=== PATIENT | female | born 1975 | race Caucasian/White ===

== ENCOUNTER 2020-04-21 20:21 | Emergency (ER) | payer MEDICAID, SELFPAY ==
[2020-04-21 20:22] VITALS: TEMP 37.1; BMI 36.5
[2020-04-21 20:25] VITALS: BP 132/74; PULSE 87; RESP 16; O2SAT 96
--- NOTE | 2020-04-21 21:28 | CT_ITS ---
We are attempting to reach an attending provider to discuss findings. An addendum with communication details will be sent when the communication is complete. STUDY: CT ABDOMEN AND PELVIS WITH CONTRAST REASON FOR EXAM: Female, 44 years old. SUDDEN ONSET LOWER ABD PAIN WITH DIARRHEA X 1 WEEK RADIATION DOSAGE (If Supplied By Facility): CTDIvol = ( 15.62 ) mGy, DLP = ( 1055.19 ) mGycm TECHNIQUE: Transaxial images were obtained from the dome of the diaphragm to the symphysis pubis without oral contrast. IV 100mL Isovue-370 was administered. Sagittal and coronal images were reconstructed. Individualized dose optimization techniques were used for this CT. COMPARISON: None. FINDINGS: The visualized lung bases are unremarkable. The visualized portions of the heart are within normal limits. Normal liver. Normal gallbladder and extrahepatic biliary system. There are 7.5 and 7.4 cm peripherally calcified cystic lesions of the spleen . Normal pancreas. Normal bilateral adrenal glands. Normal right kidney. Normal left kidney. Normal visualized stomach. Normal small intestine. There is mild fluid distention of the colon. There is a tubular, thick-walled appendix (>7mm), consistent with acute appendicitis, series 2 image 80/119 through 89/119. Normal abdominal aorta. Normal inferior vena cava. Normal retroperitoneum. Normal urinary bladder. Normal visualized uterus. There is no free fluid in the abdomen or pelvis. Normal abdominal wall. Normal osseous structures. CT/Abdomen/Pelvis W IV Cont ONLY IMPRESSION: Mild enlargement of the appendix suggesting acute appendicitis. No abscess or obstruction. Electronically Signed: Mahesh Moura MD at 23:01 EDT , Service support ,
[2020-04-21] MEDS: Morphine 4 MG/ML Syringe IV (21:33)
[2020-04-21] MEDS: Ondansetron 4 MG/2 ML Vial IV (21:33)
[2020-04-21 21:46] LABS: Absolute Neutrophil Count 8.7 X10^3/uL (2.0-7.7); Basophil# 0.05 X10^3/uL; Basophil% 0.4 % (0-1); Eosinophils% 2.2 % (0-5); Hematocrit 41.5 % (37-47); Hemoglobin 13.8 g/dL (12.0-15.0); Lymphocyte % 23.8 % (19-41); Mean Corp Hgb Conc 33.3 g/dL (32-36); Mean Corpuscular Hgb 29.1 pg (27.0-32.0); Mean Corpuscular Volume 87.4 fL (81-99); Mean Platelet Vol. 9.3 fl (6.2-12.0); Monocyte# 1.19 X10^3/uL; Monocyte% 8.8 % (0-10); NRBC Flagged by Analyzer 0 % (0-5); Neutrophil # 8.67 X10^3/uL (2.7-7.7); Neutrophil % 64.4 % (47-70); Platelet Count 402 K/mm3 (150-450); RBC Distribution Width CV 13.6 % (11.6-14.6); RBC Distribution Width SD 42.7 fl (35.1-43.9); Red Blood Count 4.75 M/mm3 (4.2-5.4); White Blood Count 13.5 K/mm3 (4.4-11.0)
[2020-04-21 21:49] LABS: Bacteria 0 SEEN /hpf (None Seen); Red Blood Cells-Urine 0 SEEN /hpf (0-5)
[2020-04-21 21:57] LABS: Color, Urine Yellow (Yellow); Glucose, Dipstick Normal (Normal); Ketone-Dipstick 5 mg/dl (Negative); Leukocyte Esterase-Dipstick 100 /ul (Negative); Nitrite-Dipstick Negative (Negative); Occult Blood-Urine 25 /ul (Negative); Protein-Dipstick 30 mg/dl (Negative); Specific Gravity, Urine 1.025 (1.002-1.030); Urine Clarity Sl. Cloudy (Clear); Urine Urobilinogen Normal (Normal)
[2020-04-21 22:00] LABS: ALB/GLOB Ratio 0.9 RATIO (0.9-2.4); AST(SGOT) 11 U/L (15-37); Alanine Aminotransfer ALT/SGPT 20 U/L (13-56); Albumin, Serum 3.7 g/dL (3.2-5.0); Alkaline Phosphatase 75 U/L (45-117); Anion Gap 10 (5-15); BUN 18 mg/dL (7-18); Calcium,Total 9.5 mg/dL (8.5-10.1); Chloride 109 mmol/L (98-107); EST Glomerular Filtration Rate 73 mL/min (>60); Est Glom Filt Rate - Afr Amer 88 mL/min (>60); Estimated Creatinine Clearance 73.27 ml/min; Globulin 4.3 g/dL (2.2-4.2); Glucose 111 mg/dL (74-106); Lipase 81 U/L (73-393); Potassium 3.4 mmol/L (3.5-5.1); Sodium Level 139 mmol/L (136-145)
[2020-04-21 22:01] LABS: Urine Bilirubin Dipstick 1 mg/dL (Negative)
[2020-04-21 22:07] LABS: Mucous, Urine 1+ /hpf (<or=2+); Squamous Epithelial Cells - UA 5-10 SEEN /hpf (5-10); White Blood Cells 5-10 SEEN /hpf (0-5)
[2020-04-21 22:08] LABS: Calcium Oxalate Crystals Ur 3+ /hpf (<or=2+)
[2020-04-21 22:25] VITALS: BP 119/74; PULSE 80; RESP 18; TEMP 36.2; O2SAT 99
--- NOTE | 2020-04-21 23:25 | ED.DCSUM_ITS ---
History of Present Illness Chief Complaint: Diarrhea Informant: Patient - Abdominal Pain/Flank Pain Onset: Today Context: Sudden Onset Timing: Continuous Quality: Sharp, Stabbing Location: - - Suprapubic Worsened by: Nothing Relieved by: Nothing - Diarrhea/Melena/Hematochezia GI Symptom: Diarrhea Onset: Days - 7 Stool Quality: Watery. Negative for: Black, Maroon, GURDEEP per rectum Associated Symptoms: Negative for: Dysuria, Frequency, Hematuria Narrative: Patient is a 44-year-old female with no significant past medical history presenting with sudden onset of abdominal pain. Patient states around 815 tonight she suddenly had a sharp stabbing pain in her suprapubic region. She has associated nausea but no vomiting. Patient does note that she has had significant diarrhea for the past week. She states she is been going up to every 30 minutes. She states she got up 3-4 times last night to have bowel movements. She states is mostly watery. She is concerned she might be dehydrated. She denies any urinary symptoms such as dysuria or hematuria. She denies any recent antibiotics, questionable foods or history of C. difficile. She denies any sick contacts. She did take 2 Imodium earlier today which did seem to slow down her diarrhea. Patient denies any fever or chills. She also notes that she had a rash on her bilateral arms since yesterday. She notes she was out at the beach yesterday and thinks it might be sun reaction. She notes she was not wearing any sunscreen or did not wear any new lotions. Patient denies any other complaints at this time. Past Medical History - Allergies and Home Meds Allergies/Adverse Reactions: Allergies latex Allergy (Verified 04/21/20 20:25) Rash Primary Care Physician: Care Physician,No Primary [Primary Care Provider] - Past Medical History: None Surgical History: no surgical history, noncontributory, - - Bilateral tubal ligation Smoking Status: Current every day smoker Review of Systems General: Denies: Chills, Fever, Sweats Eyes: Denies: Visual changes - bilaterally, Diplopia ENT: Denies: Rhinorrhea, Sore throat Cardiovascular: Denies: Chest pain, Palpitations Respiratory: Denies: Dyspnea, Cough, Dyspnea on exertion Gastrointestinal: Reports: Abdominal pain, Nausea, Diarrhea. Denies: Vomiting, Melena, Hematochezia Genitourinary: Denies: Dysuria, Hematuria, Frequency Musculoskeletal: Denies: Back pain, Extremity Pain Skin: Reports: Rash - arms. Denies: Wounds Neurological: Denies: Headache, Weakness, Numbness Physical Exam Vital Signs/Narrative: Vital Signs Temp Pulse Resp BP Pulse Ox 04/21/20 22:25 97.1 F L 80 18 119/74 99 04/21/20 20:25 87 16 132/74 H 96 04/21/20 20:22 98.7 F Inital Vital Signs reviewed: Yes General: Well nourished, Well developed, No Acute Distress Head: Normocephalic, Atraumatic Eyes: Perrl, EOMI ENT: Moist mucous membranes, No rhinorrhea Neck: Supple, Nontender Cardiovascular: Regular rate, Regular rhythm, No murmurs Respiratory: No distress, CTA bilaterally, Chest nontender Abdomen: Soft, Nontender, Nondistended, Hyperactive bowel sounds. Negative for: Guarding, Rebound tenderness, Rovsig's sign, Frank's sign Back: Nontender, Normal Inspection. Negative for: CVA tenderness Extremities: Nontender, No edema Skin: Normal color, Rash - Macule-papular erythematous rash on the sun exposed surfaces of the upper extremities consistent with a photodermatitis Neurological: Alert, Oriented x3, Cranial nerves II-XII grossly intact, Normal Strength, Normal Sensation Psychological: Normal affect, Normal Mood Diagnostic/Tx/Re-eval Clinical Impression(s) from Imaging Studies Abdomen/Pelvis CT 04/21/20 21:28 IMPRESSION: Mild enlargement of the appendix suggesting acute appendicitis. No abscess or obstruction. Electronically Signed: Mahesh Moura MD at 23:01 EDT , Service support , ADDENDUM: 04/21/20 [id number] IMPRESSION: Mild enlargement of the appendix suggesting acute appendicitis. No abscess or obstruction. N.B. : The above information has been verbally conveyed by Mahesh Moura MD to Tonia Paulson DO on 04/21/2020 23:08:56 (ET). Electronically Signed: Mahesh Moura MD at 23:01 EDT , Service support , Laboratory Data 04/21/20 04/21/20 04/21/20 20:45 20:45 21:45 WBC 13.5 H RBC 4.75 Hgb 13.8 Hct 41.5 MCV 87.4 MCH 29.1 MCHC 33.3 RDW Std Deviation 42.7 RDW Coeff of Jie 13.6 Plt Count 402 MPV 9.3 Immature Gran % (Auto) 0.400 Neut % (Auto) 64.4 Lymph % (Auto) 23.8 [place] % (Auto) 8.8 Eos % (Auto) 2.2 Baso % (Auto) 0.4 Absolute Neuts (auto) 8.7 H Absolute Lymphs (auto) 3.20 Nucleated RBC % 0 Sodium 139 Potassium 3.4 L Chloride 109 H Carbon Dioxide 20.0 L Anion Gap 10 BUN 18 Creatinine 0.90 Estim Creat Clear Calc 73.27 Est GFR (MDRD) Af Amer 88 Est GFR (MDRD) Non-Af 73 BUN/Creatinine Ratio 20.0 Glucose 111 H Calcium 9.5 Total Bilirubin 0.40 AST 11 L ALT 20 Alkaline Phosphatase 75 Total Protein 8.0 Albumin 3.7 Globulin 4.3 H Albumin/Globulin Ratio 0.9 Lipase 81 Urine Color Yellow Urine Clarity Sl. Cloudy Urine pH 5.0 Ur Specific [place] 1.025 Urine Protein 30 H Urine Glucose (UA) Normal Urine Ketones 5 H Urine Occult Blood 25 H Urine Nitrite Negative Urine Bilirubin 1 H Urine Urobilinogen Normal Ur Leukocyte Esterase 100 H Urine RBC 0 SEEN Urine WBC 5-10 SEEN Ur Squamous Epith Cells 5-10 SEEN Calcium Oxalate Crystal 3+ Urine Bacteria 0 SEEN Urine Mucus 1+ - Medical Decision Making Patient evaluated for sudden onset abdominal pain. She appears nontoxic in no acute distress. She is hemodynamically stable. She is given a liter of IV fluids as well as Zofran and IV morphine. Her abdominal exam is benign.Lab work is remarkable for leukocytosis of 13.5. CMP shows a very mild hypokalemia of 3.4 and a low carbon dioxide of 20. No transaminitis. Urinalysis shows 100 leukoesterase with no bacteria and contamination with squamous cells. Urine culture sent. CT is concerning for acute appendicitis with tubular thick-walled appendix. Patient does not have any pain in her right lower quadrant. Case is then discussed with surgery on-call, Dr. Shin who reviewed the images himself and also discussed this with a different radiologist. They do not feel that patient has acute appendicitis. Patient will be given a dose of IV Zosyn kept n.p.o. and will discharge home to follow-up with Dr. Shin's office at 7 AM. He will perform a repeat abdominal exam at that time. Patient is agreeable with this plan. She is very well-appearing and I think this is an appropriate plan. She is empirically swabbed for COVID-19 in case she does need surgery in the morning. Patient is counseled on signs and symptoms requiring return to the emergency room. Patient verbalizes agreement and understand this plan. Patient discharged home in stable and improved condition. ED Disposition - Plan for ED Patient: Disposition: Home or Assisted Living Diagnosis: Abdominal pain, Diarrhea, Abnormal CT scan, Photodermatitis due to sun Instructions: ED Abdominal Pain Appendx Poss Referrals: Tayo Shin MD [STAFF PHYSICIAN] - Additional Instructions: The initial CT scan read of your abdomen showed appendicitis. On reevaluation with another radiologist and our surgeon they do not believe it is appendicitis. We have arranged for you to be evaluated by the surgeon at 7 AM at the office for repeat abdominal exam. You have been given a dose of IV antibiotics tonight. Please do not have anything to eat or drink until you are seen by the surgeon. Rash is likely from sun exposure yesterday. You do not have any significant dehydration or electrolyte abnormality from your diarrhea.
[2020-04-21 23:32] VITALS: BP 126/80; PULSE 84; RESP 20; TEMP 37.1; O2SAT 98
[2020-04-22 00:19] VITALS: BP 114/70; PULSE 84; RESP 18; TEMP 37.1; O2SAT 97
[2020-04-22 01:10] VITALS: BP 118/70; PULSE 82; RESP 16; O2SAT 98
== END 2020-04-22 01:10 | disposition home or self-care (01) ==
PROVIDERS: Emergency Provider Emergency Medicine
DX: R10.9 Unspecified abdominal pain (principal); R19.7 Diarrhea, unspecified; R11.0 Nausea; E87.6 Hypokalemia; R94.8 Abnormal results of function studies of other organs and systems; L56.8 Other specified acute skin changes due to ultraviolet radiation; X32.XXXA Exposure to sunlight, initial encounter; Y93.9 Activity, unspecified; Y92.832 Beach as the place of occurrence of the external cause; Y99.9 Unspecified external cause status; F17.200 Nicotine dependence, unspecified, uncomplicated; Z91.040 Latex allergy status
CPT/HCPCS: 74177; 80053; 81001; 83690; 85025; 87086; 87088; 87635; 96365; 96375; 99285; G2023; J7030; J7050; Q9967; A4216; J2405; U0004

== ENCOUNTER 2022-06-01 13:48 | Emergency (ER) | payer MEDICAID, SELFPAY ==
[2022-06-01 13:49] VITALS: BP 141/80; PULSE 89; RESP 16; TEMP 36.8; O2SAT 96; BMI 34.1
--- NOTE | 2022-06-01 13:57 | EDS_ITS ---
HPI History of Present Illness Chief Complaint: Upper Extremity Injury Informant: patient Narrative Narrative: 46-year-old female arriving in the emergency department with left wrist pain. Patient states that this morning she tripped over a box and sustained a FOOSH injury. She notes pain along the thenar eminence up onto the distal wrist. She denies other injuries. She applied an Alexander wrap. [facility] Medical History No pertinent past medical history Home Medications ciprofloxacin HCl 500 mg tablet (Cipro) 500 mg PO BID #14 tabs 04/22/20 [Rx Last Taken Unknown] metronidazole 500 mg tablet (Flagyl) 500 mg PO TID #21 tabs 04/22/20 [Rx Last Taken Unknown] Allergy/AdvReac Type Severity Reaction Status Date / Time latex Allergy Rash Verified 04/22/20 12:28 Family History Father Cancer brain, lung Surgical History History of tubal ligation (~2013) Social History (Updated 06/01/22 @ 13:[address] Micheal Nguyễn DO) Smoking Status: Current every day smoker substance use type: does not use ROS ROS ED Constitutional Constitutional ED: Denies chills or weight loss Eyes Eyes: Denies change in vision or diplopia ENT ENT ED: Denies ear pain, rhinorrhea or sore throat Cardiovascular Cardiovascular: Denies chest pain, orthopnea, palpitations or racing heartbeat Respiratory/Chest Respiratory/Chest: Denies cough, dyspnea or orthopnea Gastrointestinal Gastrointestinal: Denies abdominal pain, diarrhea, nausea or vomiting Genitourinary Genitourinary ED: Denies dysuria, hematuria or urinary frequency Musculoskeletal Musculoskeletal: Reports other Details: See history of present illness ; Denies arthralgias or myalgias Integumentary Denies abscess or rash Neurologic Neurologic: Denies headache(s) or weakness Psychiatric Psychiatric: Denies anxiety, depression, suicidal ideation or suicidal thoughts Endocrine Endocrinology: Denies polydipsia, polyphagia or polyuria Allergic/Immunologic Allergic/Immunologic ED: Denies mouth swelling, tongue swelling or urticaria EXAM Physical Exam Const Vital Signs: 06/01/22 13:49 Temperature 98.2 F Temperature Source Temporal Pulse Rate 89 Respiratory Rate 16 Blood Pressure 141/80 H Blood Pressure Mean 100 Pulse Ox 96 Oxygen Delivery Method Room Air Positive well nourished and well developed General Appearance ED: well developed HEENT Reports normocephalic, head/scalp atraumatic and moist mucous membranes Eyes PERRL and EOMs intact bilaterally Neck full ROM, no lymphadenopathy, supple and no JVD Resp normal respiratory effort and clear to auscultation bilaterally Cardio regular rate, regular rhythm and no murmurs GI normal to inspection, nondistended, normoactive bowel sounds and non-tender Palpation: soft Back/Spine no CVA tenderness and normal ROM Extremity Extremity Narrative: Patient reports tenderness to palpation along the thenar eminence and the radial aspect of the left wrist. There is no significant swelling or deformity noted. Normal opposition. General Extremety ED: Negative for edema General Extremity: Negative for edema Neuro oriented x3 and CN's II-XII intact bilaterally Sensorium / Orientation: alert Motor Exam: strength 5/5 throughout Psych mental status grossly normal Mood & Affect: Negative for depressed or tearful Skin no rashes or lesions noted and no wounds MDM MDM MDM Narrative Medical decision making narrative: My interpretation of the plain films of the left wrist is no acute fracture. Patient was placed in a thumb spica Velcro splint. Follow-up 10 to 14 days if not improved return if worsening or concerns Discharge Plan Triage Chief Complaint: Upper Extremity Injury ED Provider: Micheal Nguyễn Dx/Rx/DC Orders Clinical Impression: Left wrist sprain Instructions: ED Wrist Sprain Prescriptions: No Action ciprofloxacin HCl [Cipro] 500 mg tablet 500 mg PO BID Qty: 14 0RF metronidazole [Flagyl] 500 mg tablet 500 mg PO TID Qty: 21 0RF Primary Care [facility]: [facility] - 10-14 Days if not better Disposition Disposition: Home, Self Care
--- NOTE | 2022-06-01 13:58 | RAD_ITS ---
STUDY: X-RAY - LEFT WRIST REASON FOR EXAM: Female, 46 years old. FALL, LATERAL PAIN TECHNIQUE: 3 view(s) of the wrist were obtained. COMPARISON: None. FINDINGS: Normal visualized distal radius and ulna. Normal radiocarpal articulation. Normal distal radioulnar articulation. Normal carpal bones. Normal carpal articulations. Normal carpometacarpal articulation of the thumb. Normal second through fifth carpometacarpal articulations. Normal visualized metacarpal bones. The soft tissue structures are unremarkable. There is no demonstrated acute fracture. RAD/Wrist min 3 Views IMPRESSION: Normal x-ray examination of the wrist. Electronically Signed: Tiburcio Lockhart MD at 14:38 EDT ,
--- NOTE | 2022-06-01 14:29 | ED.RN ---
no thumb spicka slints in the ER, called the housekeeping lead to look in the dasco closet.
[2022-06-01 14:36] VITALS: RESP 18
== END 2022-06-01 14:37 | disposition home or self-care (01) ==
PROVIDERS: Emergency Provider Emergency Medicine; Visit Provider Emergency Medicine
DX: S63.92XA Sprain of unspecified part of left wrist and hand, initial encounter (principal); W18.09XA Striking against other object with subsequent fall, initial encounter; F17.200 Nicotine dependence, unspecified, uncomplicated; Z79.899 Other long term (current) drug therapy
CPT/HCPCS: 73110; 99283

== ENCOUNTER → 2022-11-29 | Outpatient (CLI) | payer MEDICAID, SELFPAY ==
[2022-11-29 17:11] LABS: Absolute Lymphocyte Count 3.74 X10^3/uL (0.83-4.51); Absolute Neutrophil Count 8.2 X10^3/uL (2.0-7.7); Basophil# 0.11 X10^3/uL; Basophil% 0.8 % (0-1); Eosinophil# 0.26 X10^3/uL; Hematocrit 36.6 % (37-47); Hemoglobin 12.3 g/dL (12.0-15.0); Lymphocyte # 3.74 X10^3/ul (0.83-4.51); Lymphocyte % 28.4 % (19-41); Mean Corp Hgb Conc 33.6 g/dL (32-36); Mean Corpuscular Hgb 31.6 pg (27.0-32.0); Mean Corpuscular Volume 94.1 fL (81-99); Mean Platelet Vol. 8.9 fl (6.2-12.0); Monocyte# 0.67 X10^3/uL; Monocyte% 5.1 % (0-10); NRBC Flagged by Analyzer 0 % (0-5); Neutrophil # 8.24 X10^3/uL (2.7-7.7); Neutrophil % 62.5 % (47-70); Platelet Count 346 K/mm3 (150-450); RBC Distribution Width SD 58.4 fl (35.1-43.9); Red Blood Count 3.89 M/mm3 (4.2-5.4); White Blood Count 13.2 K/mm3 (4.4-11.0)
[2022-11-29 17:33] LABS: ALB/GLOB Ratio 0.6 RATIO (0.9-2.4); AST(SGOT) 35 U/L (15-37); Alanine Aminotransfer ALT/SGPT 54 U/L (13-56); Albumin, Serum 3.3 g/dL (3.2-5.0); Alkaline Phosphatase 94 U/L (45-117); Anion Gap 4 (5-15); BUN 11 mg/dL (7-18); BUN/Creat Ratio 15.8 RATIO (10-20); Calcium,Total 9.1 mg/dL (8.5-10.1); Chloride 105 mmol/L (98-107); EST Glomerular Filtration Rate 97 mL/min (>60); Est Glom Filt Rate - Afr Amer 117 mL/min (>60); Globulin 5.3 g/dL (2.2-4.2); Glucose 157 mg/dL (74-106); Potassium 3.6 mmol/L (3.5-5.1); Protein, Total 8.6 g/dL (6.4-8.2); Sodium Level 137 mmol/L (136-145)
[2022-12-01 11:51] LABS: Hemoglobin A1c 4.8 % (3.8-5.6)
== END | disposition home or self-care (01) ==
LOC: LAB 16:33
PROVIDERS: Visit Provider Nurse Practitioner Family
DX: B17.9 Acute viral hepatitis, unspecified (principal); E66.9 Obesity, unspecified
CPT/HCPCS: 36415; 80053; 80074; 83036; 85025; 86708

== ENCOUNTER 2023-11-21 09:58 | Emergency (ER) | payer MEDICAID, SELFPAY ==
[2023-11-21 09:59] VITALS: BP 112/75; PULSE 111; RESP 18; TEMP 36.1; O2SAT 96; BMI 36.1
--- NOTE | 2023-11-21 10:42 | US_ITS ---
STUDY: ABDOMINAL ULTRASOUND - RIGHT UPPER QUADRANT REASON FOR VISIT: Female, 47 years old RUQ pain TECHNIQUE: Ultrasound evaluation of the right upper quadrant was performed with real-time and static dimas-scale imaging. TECHNICAL QUALITY: Adequate. COMPARISON: CT abdomen and pelvis with IV contrast 04/21/2020. FINDINGS: Liver: The liver measures 18.2 cm. There is normal echogenicity of the liver. The bile ducts are within normal limits. There is hepatic color flow. The direction of portal flow is hepatopetal. 1 cm hyperechoic lesion in the left hepatic lobe representing hemangioma. Gallbladder: Normal distended gallbladder. Small foci in the gallbladder wall with comet tail artifact may represent minimal GB wall calcifications. The gallbladder wall measures 2 mm. There is a negative sonographic Frank''s sign. There is no pericholecystic fluid. There are no gallstones. Common Bile Duct (C.B.D.): The common bile duct measures 2.7 mm. Pancreas: Normal size of the head, body and tail of the pancreas. Normal echogenic pancreas. There is no demonstrated pancreatic mass or cyst. Right Kidney: Normal size of the right kidney. The right kidney measures 11.5 x 5.9 x 4.5 cm. Normal renal cortex. The right cortex measures 1.1 cm. There is no demonstrated renal mass or cyst. There is no right hydronephrosis. US/Gallbladder IMPRESSION: 1. Comment tail artifacts coming from the GB wall may be due to minimal calcifications but no gallstones, no pericholecystic fluid and negative Frank''s sign. 2. Small 1 cm hyperechoic lesion in the left hepatic lobe may be secondary to hemangioma. Three-phase CT of the liver will help clarify if desired. Electronically Signed: Robbie Perdue MD at 12:19 EST ,
--- NOTE | 2023-11-21 10:52 | EDS_ITS ---
HPI History of Present Illness Chief Complaint: Abd Pain Informant: patient Onset/Context/Timing Onset: Days Context: Gradual Onset Narrative Narrative: Patient presents with 4-day history of diarrhea. She also complains of pain along the right lateral abdominal wall that wraps into her back as well as her abdomen. She does report a history of hepatitis and is supposed to be on medications but has not been doing so. She states these infusions are ordered by [facility]. She denies seeing a liver specialist. She reports subjective fever at home. [facility] Medical History Abnormal LFTs Acute viral hepatitis No pertinent past medical history Home Medications sertraline 25 mg tablet (Zoloft) 100 mg PO DAILY 11/07/22 [History Last Taken Unknown] trazodone 50 mg tablet 50 mg PO DAILY PRN insomnia 11/07/22 [History Last Taken Unknown] acetaminophen 650 mg tablet,extended release 650 mg PO Q12H 12/29/22 [History Last Taken Unknown] albuterol sulfate 90 mcg/actuation breath activated powder inhaler 1 inh inhalation ONCE 12/29/22 [History Last Taken Unknown] buspirone 15 mg tablet 15 mg PO BID 12/29/22 [History Last Taken Unknown] Allergy/AdvReac Type Severity Reaction Status Date / Time latex Allergy Rash Verified 11/21/23 09:59 Family History Father Cancer brain, lung Surgical History History of tubal ligation (~2013) Social History Smoking Status: Current every day smoker tobacco type: cigarettes substance use type: does not use ROS ROS ED Constitutional Constitutional ED: Reports fever(s) and subjective; Denies chills Eyes Eyes: Denies discharge from eye(s) ENT ENT ED: Denies discharge from eye(s), rhinorrhea or sore throat Cardiovascular Cardiovascular: Denies chest pain or palpitations Respiratory/Chest Respiratory/Chest: Denies cough or dyspnea Gastrointestinal Gastrointestinal: Reports abdominal pain and diarrhea; Denies nausea or vomiting Genitourinary Genitourinary ED: Denies dysuria Musculoskeletal Musculoskeletal: Denies back pain or extremity pain Integumentary Denies Abrasions or rash Neurologic Neurologic: Denies headache(s) or weakness Psychiatric Psychiatric: Denies anxiety or depression Allergic/Immunologic Allergic/Immunologic ED: Denies lip swelling or urticaria EXAM Physical Exam Const Vital Signs: 11/21/23 09:59 11/21/23 11:56 11/21/23 13:00 Temperature 96.9 F L Temperature Source Temporal Pulse Rate 111 H 91 95 Respiratory Rate 18 16 16 Blood Pressure 112/75 117/78 116/80 Blood Pressure Mean 87 91 92 Pulse Ox 96 96 96 Oxygen Delivery Method Room Air Room Air Room Air Positive well nourished and well developed General Appearance ED: well developed HEENT Reports moist mucous membranes Eyes EOMs intact bilaterally Chest Wall inspection of chest normal and palpation of chest normal Resp normal respiratory effort and clear to auscultation bilaterally Cardio regular rate and regular rhythm GI GI Narrative: Mild tenderness to the right upper quadrant. No guarding or rebound. Hypoactive but present bowel sounds. Extremity normal to inspection Neuro oriented x3 and no sensory deficits noted Motor Exam: strength 5/5 throughout Psych mental status grossly normal Skin no rashes or lesions noted MDM MDM MDM Narrative Medical decision making narrative: IV line established. Patient given morphine and Zofran for pain and nausea. Labwork obtained to evaluate for leukocytosis, anemia, and electrolyte derangement. Right upper quadrant ultrasound obtained to evaluate for gallbladder disease. Lab Data Attestation: I reviewed the patient's lab results. Labs: Laboratory Results - last 24 hr 11/21/23 11/21/23 10:10 13:53 WBC 18.2 H RBC 4.62 Hgb 13.6 Hct 41.7 MCV 90.3 MCH 29.4 MCHC 32.6 RDW Std Deviation 43.8 RDW Coeff of Jie 13.3 Plt Count 360 MPV 9.3 Immature Gran % (Auto) 0.400 Neut % (Auto) 72.6 H Lymph % (Auto) 18.7 L [place] % (Auto) 6.3 Eos % (Auto) 1.3 Baso % (Auto) 0.7 Absolute Neuts (auto) 13.2 H Absolute Lymphs (auto) 3.40 Nucleated RBC % 0 Sodium 136 Potassium 3.5 Chloride 103 Carbon Dioxide 28.0 Anion Gap 5 BUN 17 Creatinine 0.88 Estim Creat Clear Calc 75.58 Est GFR (MDRD) Af Amer 89 Est GFR (MDRD) Non-Af 74 BUN/Creatinine Ratio 19.3 Glucose 139 H Calcium 9.6 Total Bilirubin 0.40 Direct Bilirubin 0.11 AST 57 H ALT 131 H Alkaline Phosphatase 107 Total Protein 8.4 H Albumin 3.6 Globulin 4.8 H Lipase 26 Urine Color Yellow Urine Clarity Clear Urine pH 5.0 Ur Specific [place] 1.015 Urine Protein Negative Urine Glucose (UA) Normal Urine Ketones Negative Urine Occult Blood Negative Urine Nitrite Negative Urine Bilirubin Negative Urine Urobilinogen Normal Ur Leukocyte Esterase Negative Urine RBC 0 SEEN Urine WBC 0-5 SEEN Ur Squamous Epith Cells 0-5 SEEN Urine Bacteria RARE Urine Mucus 0 SEEN Radiography Diagnostic Testing: Clinical Impression(s) from Imaging Studies Gallbladder Ultrasound 11/21/23 10:42 IMPRESSION: 1. Comment tail artifacts coming from the GB wall may be due to minimal calcifications but no gallstones, no pericholecystic fluid and negative Frank''s sign. 2. Small 1 cm hyperechoic lesion in the left hepatic lobe may be secondary to hemangioma. Three-phase CT of the liver will help clarify if desired. Electronically Signed: Robbie Perdue MD at 12:19 EST , Abdomen/Pelvis CT 11/21/23 12:35 IMPRESSION: 1. Prominent bilobed cyst with calcified jain in the spleen. This is unchanged. 2. Normal CT of the appendix, previously reported as acute appendicitis when compared to 04/21/2020. 3. No acute abnormality in the abdomen and pelvis. Electronically Signed: Robbie Perdue MD at 13:50 EST , Treatment and Re-Evaluation :: CBC was elevated white count 18.2 with 72% neutrophils. Last labs patient had obtained here were in November at which time her white count was 13. She does not know of a chronically elevated white count. Chemistry studies remarkable only for glucose of 139. Renal function is normal. LFTs reveal an AST of 57 and ALT of 131. Lipase is 26. Urinalysis is unremarkable. Right upper quadrant ultrasound reveals artifact coming from the gallbladder which may be due to minimal calcification but no gallstones or pericholecystic fluid noted. Small hyperechoic lesion in the left hepatic lobe may be secondary to hemangio ma. Given her leukocytosis with abdominal pain and reported fever I did pursue a CT scan abdomen pelvis with IV contrast. There is a prominent bilobed cyst with calcified jain in the spleen that is unchanged from prior. Normal appendix. No acute abnormality noted. Test results are discussed with the patient. She has not been febrile here but did have subjective fever at home. Given her leukocytosis I will draw blood cultures as well as another hepatitis panel as patient has had hepatitis in the past and has not been going for her infusion treatments. She will [facility] with [facility] for repeat lab work. Return instructions were also provided. Patient comfortable with this plan. Discharge Plan Triage Chief Complaint: Abd Pain ED Provider: Jaylyn Ji Dx/Rx/DC Orders Clinical Impression: Leukocytosis, Abdominal pain Instructions: ED Abdominal Pain Unkn Cause Fem Prescriptions: No Action sertraline [Zoloft] 25 mg tablet 100 mg PO DAILY trazodone 50 mg tablet 50 mg PO DAILY PRN (Reason: insomnia) acetaminophen 650 mg tablet extended release 650 mg PO Q12H albuterol sulfate 90 mcg/actuation aerosol powdr breath activated 1 inh inhalation ONCE buspirone 15 mg tablet 15 mg PO BID Primary Care Provider: [facility] An[facility] Acosta Referrals: [facility] [Primary Care Provider] - 1 Week Activity Restrictions/Additional Instructions: As discussed, your white blood cell count is elevated today. I have not found any specific source of infection, but do have blood cultures pending. Please follow-up with [facility] for repeat labs. Disposition Disposition: Home, Self Care
[2023-11-21] MEDS: Morphine 4 MG/ML Syringe IV (10:54)
[2023-11-21] MEDS: 0.9% Normal Saline (1000mL) 1,000 ML 150 ML IV (10:54)
[2023-11-21] MEDS: Ondansetron 4 MG/2 ML Vial IV (10:54)
[2023-11-21 10:59] LABS: Absolute Neutrophil Count 13.2 X10^3/uL (2.0-7.7); Basophil# 0.12 X10^3/uL; Basophil% 0.7 % (0-1); Eosinophil# 0.24 X10^3/uL; Eosinophils% 1.3 % (0-5); Hematocrit 41.7 % (37-47); Hemoglobin 13.6 g/dL (12.0-15.0); Lymphocyte % 18.7 % (19-41); Mean Corp Hgb Conc 32.6 g/dL (32-36); Mean Corpuscular Hgb 29.4 pg (27.0-32.0); Mean Corpuscular Volume 90.3 fL (81-99); Mean Platelet Vol. 9.3 fl (6.2-12.0); Monocyte# 1.15 X10^3/uL; Monocyte% 6.3 % (0-10); NRBC Flagged by Analyzer 0 % (0-5); Neutrophil # 13.19 X10^3/uL (2.7-7.7); Neutrophil % 72.6 % (47-70); Platelet Count 360 K/mm3 (150-450); RBC Distribution Width CV 13.3 % (11.6-14.6); RBC Distribution Width SD 43.8 fl (35.1-43.9); Red Blood Count 4.62 M/mm3 (4.2-5.4); White Blood Count 18.2 K/mm3 (4.4-11.0)
[2023-11-21 11:14] LABS: AST(SGOT) 57 U/L (15-37); Alanine Aminotransfer ALT/SGPT 131 U/L (13-56); Albumin, Serum 3.6 g/dL (3.2-5.0); Alkaline Phosphatase 107 U/L (45-117); Anion Gap 5 (5-15); BUN 17 mg/dL (7-18); BUN/Creat Ratio 19.3 RATIO (10-20); Bilirubin, Direct 0.11 mg/dL (0.00-0.30); Calcium,Total 9.6 mg/dL (8.5-10.1); Chloride 103 mmol/L (98-107); Creatinine, Serum 0.88 mg/dL (0.55-1.02); EST Glomerular Filtration Rate 74 mL/min (>60); Est Glom Filt Rate - Afr Amer 89 mL/min (>60); Estimated Creatinine Clearance 75.58 ml/min; Globulin 4.8 g/dL (2.2-4.2); Glucose 139 mg/dL (74-106); Lipase 26 U/L (13-75); Potassium 3.5 mmol/L (3.5-5.1); Protein, Total 8.4 g/dL (6.4-8.2); Sodium Level 136 mmol/L (136-145)
[2023-11-21 11:56] VITALS: BP 117/78; PULSE 91; RESP 16; O2SAT 96
--- NOTE | 2023-11-21 12:35 | CT_ITS ---
EXAM: CT ABDOMEN AND PELVIS WITH INTRAVENOUS CONTRAST CLINICAL INDICATION: Right upper quadrant pain. Leukocytosis. TECHNIQUE: Helically acquired images were obtained of the abdomen and pelvis with intravenous contrast. This CT exam was performed using one or more of the following dose reduction techniques: automated exposure control, adjustment of the mA and/or kV according to patient size, and/or use of iterative reconstruction technique. CONTRAST: 100 mL of IV Isovue-300. RADIATION DOSE: CTDIvol = 17.50 mGy, DLP = 1183.12 mGy-cm COMPARISON: CT abdomen and pelvis with IV contrast 04/21/2020. FINDINGS: LOWER THORAX: Unremarkable. Lung bases are clear. No cardiomegaly. No significant pericardial effusion. ABDOMEN: LIVER: Unremarkable. Homogeneous. No focal mass. GALLBLADDER AND BILE DUCTS: Unremarkable. No calcified gallstones. No gallbladder distention or wall edema. No intra- or extrahepatic biliary ductal dilation. PANCREAS: Unremarkable. No focal cystic or solid mass. SPLEEN: Prominent bilobed splenic cysts with thick calcified jain are unchanged. ADRENALS: Unremarkable. No nodules. KIDNEYS AND URETERS: Unremarkable. Normal renal size and position. No hydronephrosis. STOMACH AND BOWEL: Unremarkable. No stomach or bowel distention. No focal inflammatory change. PELVIS: APPENDIX: Normal appendix. BLADDER: Unremarkable. REPRODUCTIVE: Unremarkable as visualized. No mass. ABDOMEN and PELVIS: INTRAPERITONEAL SPACE: Unremarkable. No ascites or other fluid collection. No free air. BONES/JOINTS: Unremarkable. No suspicious lytic or blastic abnormality. SOFT TISSUES: Unremarkable. No discrete abdominal or pelvic wall hernia. VASCULATURE: Unremarkable. Abdominal aorta is non-dilated. LYMPH NODES: Unremarkable. No enlarged lymph nodes. CT/Abdomen/Pelvis W IV Cont ONLY IMPRESSION: 1. Prominent bilobed cyst with calcified jain in the spleen. This is unchanged. 2. Normal CT of the appendix, previously reported as acute appendicitis when compared to 04/21/2020. 3. No acute abnormality in the abdomen and pelvis. Electronically Signed: Robbie Perdue MD at 13:50 EST ,
[2023-11-21 13:00] VITALS: BP 116/80; PULSE 95; RESP 16; O2SAT 96
[2023-11-21 13:58] LABS: Mucous, Urine 0 SEEN /hpf (<or=2+); Red Blood Cells-Urine 0 SEEN /hpf (0-5)
[2023-11-21 14:00] LABS: Color, Urine Yellow (Yellow); Glucose, Dipstick Normal (Normal); Ketone-Dipstick Negative (Negative); Leukocyte Esterase-Dipstick Negative /ul (Negative); Nitrite-Dipstick Negative (Negative); Occult Blood-Urine Negative /ul (Negative); Protein-Dipstick Negative (Negative); Specific Gravity, Urine 1.015 (1.002-1.030); Urine Bilirubin Dipstick Negative (Negative); Urine Clarity Clear (Clear); Urine Urobilinogen Normal (Normal)
[2023-11-21 14:06] LABS: Bacteria RARE /hpf (None Seen); Squamous Epithelial Cells - UA 0-5 SEEN /hpf (5-10); White Blood Cells 0-5 SEEN /hpf (0-5)
== END 2023-11-21 16:15 | disposition home or self-care (01) ==
PROVIDERS: Emergency Provider Emergency Medicine; Referring Provider Emergency Medicine; Visit Provider Emergency Medicine
DX: R10.11 Right upper quadrant pain (principal); D72.829 Elevated white blood cell count, unspecified; B17.9 Acute viral hepatitis, unspecified; F17.210 Nicotine dependence, cigarettes, uncomplicated; Z91.148 Patient's other noncompliance with medication regimen for other reason
CPT/HCPCS: 36415; 74177; 76705; 80048; 80074; 80076; 81001; 83690; 85025; 87040; 96361; 96374; 96375; 99282; Q9967; A4216; J2405

== ENCOUNTER 2024-02-20 16:02 | Outpatient (REF) | payer SELFPAY ==
[2024-02-20 16:03] VITALS: BP 131/81; PULSE 94; RESP 16; TEMP 36.2; O2SAT 98; BMI 38.2
--- NOTE | 2024-02-20 16:06 | NURSING ---
NO OLD EKGS
--- NOTE | 2024-02-20 16:23 | EKG12_ITS ---
Test Reason : CP Blood Pressure : / mmHG Vent. Rate : 097 BPM Atrial Rate : 097 BPM P-R Int : 134 ms QRS Dur : 144 ms QT Int : 382 ms P-R-T Axes : 032 072 027 degrees QTc Int : 485 ms Normal sinus rhythm Right bundle branch block Abnormal ECG No previous ECGs available Confirmed by SHAILA ALTMAN, ABDI ([id number]), editor map ANDERSON FOX ([id number]) on 02/21/2024 9:15:40 AM Referred By: MACY/STEVEN Confirmed By:ABDI LINTON MD
[2024-02-20] MEDS: Aspirin 81 MG TAB.CHEW 324 MG PO (16:29)
[2024-02-20 16:37] LABS: Basophil# 0.11 X10^3/uL; Basophil% 0.7 % (0-1); Eosinophil# 0.17 X10^3/uL; Eosinophils% 1.1 % (0-5); Hematocrit 38.2 % (37-47); Hemoglobin 12.8 g/dL (12.0-15.0); Lymphocyte % 21.8 % (19-41); Mean Corp Hgb Conc 33.5 g/dL (32-36); Mean Corpuscular Hgb 30.2 pg (27.0-32.0); Mean Corpuscular Volume 90.1 fL (81-99); Mean Platelet Vol. 8.8 fl (6.2-12.0); Monocyte# 1.44 X10^3/uL; Monocyte% 9.5 % (0-10); NRBC Flagged by Analyzer 0 % (0-5); Neutrophil # 10.04 X10^3/uL (2.7-7.7); Neutrophil % 66.6 % (47-70); Platelet Count 344 K/mm3 (150-450); RBC Distribution Width CV 13.3 % (11.6-14.6); RBC Distribution Width SD 43.6 fl (35.1-43.9); Red Blood Count 4.24 M/mm3 (4.2-5.4); White Blood Count 15.1 K/mm3 (4.4-11.0)
--- NOTE | 2024-02-20 16:37 | RAD_ITS ---
STUDY: X-RAY CHEST REASON FOR EXAM: Female, 48 years old. chest pain TECHNIQUE: AP portable COMPARISON: None. FINDINGS: The lungs are clear and expanded. There is no demonstrated pleural abnormality. Normal size heart. Normal mediastinum and darby. Normal visualized pulmonary arteries. Normal visualized aortic arch and descending thoracic aorta. Normal visualized thoracic spine. Normal visualized ribs, clavicles, and shoulders. There is no demonstrated abnormality of the visualized soft tissue structures of the upper abdomen. RAD/Chest 1 View (Portable) IMPRESSION: Normal x-ray examination of the chest. Electronically Signed: Triston Ardon MD at 17:28 EDT ,
[2024-02-20 17:02] VITALS: BP 128/79; PULSE 82; RESP 17; O2SAT 97
--- NOTE | 2024-02-20 17:08 | EDS_ITS ---
HPI <Vianey Bright RN - Last Filed: 02/20/24 17:42> History of Present Illness Chief Complaint: Chest Pain Detail of Chief Complaint: Midsternal radiating to right neck and right shoulder Informant: patient Onset/Context/Timing Onset: Yesterday Activity at onset: sudden Timing: Intermittent Quality: Positive for Pressure Location: Substernal Current Severity: 0/10 Maximum Severity: 7/10 Worsened By: Nothing Relieved By: Nothing Narrative Narrative: Patient is a 48-year-old female with past medical history of viral hepatitis who presents with midsternal chest pain radiating to right neck and right arm. Patient reports pain woke her last night from her sleep and has continued to be intermittent. She denies precipitating or aggravating events. Pain self resol ves. She denies chest pain at this time. She denies lightheadedness, dizziness, nausea, vomiting, or diarrhea. She denies any recent travel. She denies any injury. She denies family history of stroke or heart disease. She is a smoker 1 pack/day x 32 years. Prior Similar Symptoms: No Recent Illness/Hospitalization: No CVD Risk Factors: Positive for Smoking [facility] <Vianey Bright RN - Last Filed: 02/20/24 17:42> [facility] Medical History Abnormal LFTs Acute viral hepatitis No pertinent past medical history Home Medications sertraline 25 mg tablet (Zoloft) 100 mg PO DAILY 11/07/22 [History Last Taken Unknown] trazodone 50 mg tablet 50 mg PO DAILY PRN insomnia 11/07/22 [History Last Taken Unknown] acetaminophen 650 mg tablet,extended release 650 mg PO Q12H 12/29/22 [History Last Taken Unknown] albuterol sulfate 90 mcg/actuation breath activated powder inhaler 1 inh inhalation ONCE 12/29/22 [History Last Taken Unknown] buspirone 15 mg tablet 15 mg PO BID 12/29/22 [History Last Taken Unknown] Allergy/AdvReac Type Severity Reaction Status Date / Time latex Allergy Rash Verified 02/20/24 16:06 Family History Father Cancer brain, lung Surgical History History of tubal ligation (~2013) Social History Smoking Status: Current every day smoker tobacco type: cigarettes substance use type: does not use ROS <Vianey Bright RN - Last Filed: 02/20/24 17:42> ROS ED Constitutional Constitutional ED: Denies chills, fever(s), sweats or weight loss Eyes Eyes: Denies change in vision ENT ENT ED: Denies ear pain, rhinorrhea or sore throat Cardiovascular Cardiovascular: Reports chest pain and other Details: No chest pain at this time. ; Denies orthopnea, palpitations, paroxysmal nocturnal dyspnea or racing heartbeat Respiratory/Chest Respiratory/Chest: Denies cough, dyspnea, dyspnea on exertion, orthopnea or paroxysmal nocturnal dyspnea Gastrointestinal Gastrointestinal: Denies abdominal pain, constipation, diarrhea, nausea or vomiting Genitourinary Genitourinary ED: Denies dysuria, hematuria or urinary frequency Musculoskeletal Musculoskeletal: Reports neck pain and other Details: Substernal chest pain radiating to right side of the neck and right shoulder. ; Denies arthralgias, back pain or myalgias Integumentary Denies abscess, Abrasions or rash Neurologic Neurologic: Denies headache(s), paresthesias or weakness Psychiatric Psychiatric: Reports anxiety and depression EXAM <Vianey Bright RN - Last Filed: 02/20/24 17:42> Physical Exam Narrative Exam Narrative: Patient is awake, alert, cooperative, good historian. Patient is accompanied by 2 police officers due to currently being incarcerated. Const Vital Signs: 02/20/24 16:03 02/20/24 16:23 02/20/24 17:02 Temperature 97.1 F L Temperature Source Temporal Pulse Rate 94 82 Respiratory Rate 16 17 Blood Pressure 131/81 H 128/79 H Blood Pressure Mean 97 95 Pulse Ox 98 97 Oxygen Delivery Method Room Air Room Air Room Air Positive well nourished and well developed General Appearance ED: well developed and NAD; Negative for pallor HEENT Reports moist mucous membranes Eyes PERRL and EOMs intact bilaterally Neck no lymphadenopathy, supple and no JVD Chest Wall inspection of chest normal and palpation of chest normal Chest Narrative: Reproducible suprasternal chest pain with palpation. Chest: tenderness Resp normal respiratory effort and clear to auscultation bilaterally Auscultation: Negative for rales, rhonchi or wheezes Cardio regular rate, regular rhythm, S1 normal heart sound and S2 normal heart sound Peripheral Pulses: pulses 2+ throughout GI normal to inspection, nondistended, normoactive bowel sounds, soft to palpation and non-tender Narrative: Denies dysuria, hematuria, urinary frequency. Back/Spine Back/Spine Narrative: Pain to cervical spine with palpation. Cervical Spine: cervical spine tenderness Extremity normal to inspection General Extremety ED: Negative for edema General Extremity: Negative for edema Neuro oriented x3 Sensorium / Orientation: awake and alert Motor Exam: strength 5/5 throughout Psych mental status grossly normal Skin no rashes or lesions noted and no wounds General Skin Exam: Negative for jaundice or pallor <Dr. Mauri Landis MD - Last Filed: 02/20/24 17:42> Physical Exam Const Vital Signs: 02/20/24 16:03 02/20/24 16:23 02/20/24 17:02 Temperature 97.1 F L Temperature Source Temporal Pulse Rate 94 82 Respiratory Rate 16 17 Blood Pressure 131/81 H 128/79 H Blood Pressure Mean 97 95 Pulse Ox 98 97 Oxygen Delivery Method Room Air Room Air Room Air MDM <Vianey Bright RN - Last Filed: 02/20/24 17:42> [facility] Lab Data Labs: Laboratory Results - last 24 hr 02/20/24 16:30 WBC 15.1 H RBC 4.24 Hgb 12.8 Hct 38.2 MCV 90.1 MCH 30.2 MCHC 33.5 RDW Std Deviation 43.6 RDW Coeff of Jei 13.3 Plt Count 344 MPV 8.8 Immature Gran % (Auto) 0.300 Neut % (Auto) 66.6 Lymph % (Auto) 21.8 [place] % (Auto) 9.5 Eos % (Auto) 1.1 Baso % (Auto) 0.7 Absolute Neuts (auto) 10.0 H Absolute Lymphs (auto) 3.30 Nucleated RBC % 0 Sodium 137 Potassium 4.0 Chloride 104 Carbon Dioxide 29.0 Anion Gap 4 L BUN 14 Creatinine 0.75 Estim Creat Clear Calc 112.35 Est GFR (MDRD) Af Amer 107 Est GFR (MDRD) Non-Af 88 BUN/Creatinine Ratio 18.6 Glucose 92 Calcium 9.3 Troponin I High Sens 6 Radiography Chest X-Ray - ED: 1 View and Read by Radiologist Diagnostic Testing: Clinical Impression(s) from Imaging Studies Chest X-Ray 02/20/24 16:37 IMPRESSION: Normal x-ray examination of the chest. Electronically Signed: Triston Ardon MD at 17:28 EDT Reading Location ID and State: [address] [place] [address] Tel , Service support , Chest x-ray shows normal cardiac silhouette, no widened mediastinum, no infiltrates noted. EKG Initial EKG: Attestation: I personally reviewed and interpreted this EKG as follows: Interpretation: Sinus Rhythm, No Acute Injury Pattern and RBBB Prior EKG tracings: not available for review Differential Diagnosis Chest pain/SOB: pulmonary embolism, ACS, pneumonia and CHF Management Discussion w/another healthcare provider: Other (Dr. Landis, ED provider.) Treatment and Re-Evaluation :: Lab work and chest x-ray reviewed. CBC shows white count of 15.1, hemoglobin 12.8, platelets 344. Chemistry is unremarkable. High-sensitivity troponin is 6. Chest x-ray shows normal cardiac silhouette, no widened mediastinum, no infiltrates noted. Upon reevaluation, patient laying in bed, awake and alert. Results discussed with patient. Patient diagnosed with musculoskeletal chest pain. Patient to be discharged. Patient to follow-up with primary care provider in 1 to 2 weeks. Return to ED for worsening or concerning symptoms. Patient may take Motrin or Tylenol for chest discomfort. Patient agreeable to plan. <Dr. Mauri Landis MD - Last Filed: 02/20/24 17:42> [facility] MDM Narrative Medical decision making narrative: I have personally performed a face to face assessment of the patient and have reviewed the YAAKOV Note. I performed a substantive portion of the visit including all aspects of the following. My kat findings include: History is [48-year-old female currently incarcerated brought out by the [employer] department. Complaining of midsternal chest pain radiating to her right shoulder. Denies any exertional chest pain or exertional dyspnea. No cardiac history. No history of DVT or PE. No falls or trauma. Pain started yesterday.] Exam is [48-year-old female vital signs are stable afebrile. Pulse ox 98% on room air no signs hypoxia. HEENT exam unremarkable. Neck nontender. Lungs clear to auscultation bilaterally. Heart regular rate and rhythm no murmur rate about 80. Chest wall she has midsternal chest reproducible discomfort there is no redness or warmth. There is no signs of trauma. There is no crepitance. Abdomen is soft and nontender normal bowel sounds no peritoneal signs. Moving all 4 extremities. Radial pulses equal and symmetrical. 5 out of 5 tire cord weaver strength. Dorsi and plantarflexion intact. Calves are nontender without edema or cords. Back she has reproducible right upper posterior shoulder tenderness. Along the trapezius. This appears to be musculoskeletal pain.] Medical Decision Making [48-year-old female with reproducible chest and shoulder pain. We did put her through a cardiac workup due to the midsternal chest pain. It is negative including her troponin, chest x-ray and EKG. She will be discharged home.] Other additions or changes: [None] History & Record Review Discussion w/independent historian: Patient Additional record(s) reviewed:: Prior inpatient record, Prior outpatient record, Prior ED visit and Prior labs Lab Data Attestation: I reviewed the patient's lab results. Lab results narrative: CBC shows an elevated white count of 15.1 which she has had on her last 3 prior visits. H&H 12 and 38. Platelets 344. Electrolytes unremarkable gap 4. Normal BUN and creatinine. Glucose 92. Troponin 6. Labs: Laboratory Results - last 24 hr 02/20/24 16:30 WBC 15.1 H RBC 4.24 Hgb 12.8 Hct 38.2 MCV 90.1 MCH 30.2 MCHC 33.5 RDW Std Deviation 43.6 RDW Coeff of Jie 13.3 Plt Count 344 MPV 8.8 Immature Gran % (Auto) 0.300 Neut % (Auto) 66.6 Lymph % (Auto) 21.8 [place] % (Auto) 9.5 Eos % (Auto) 1.1 Baso % (Auto) 0.7 Absolute Neuts (auto) 10.0 H Absolute Lymphs (auto) 3.30 Nucleated RBC % 0 Sodium 137 Potassium 4.0 Chloride 104 Carbon Dioxide 29.0 Anion Gap 4 L BUN 14 Creatinine 0.75 Estim Creat Clear Calc 112.35 Est GFR (MDRD) Af Amer 107 Est GFR (MDRD) Non-Af 88 BUN/Creatinine Ratio 18.6 Glucose 92 Calcium 9.3 Troponin I High Sens 6 Radiography Diagnostic Testing: Clinical Impression(s) from Imaging Studies Chest X-Ray 02/20/24 16:37 IMPRESSION: Normal x-ray examination of the chest. Electronically Signed: Triston Ardon MD at 17:28 EDT , Discharge Plan Triage Chief Complaint: Chest Pain ED Provider: Mauri Landis Dx/Rx/DC Orders Clinical Impression: Musculoskeletal chest pain, History of depression Instructions: ED Chest Pain, Noncardiac Prescriptions: No Action sertraline [Zoloft] 25 mg tablet 100 mg PO DAILY trazodone 50 mg tablet 50 mg PO DAILY PRN (Reason: insomnia) acetaminophen 650 mg tablet extended release 650 mg PO Q12H albuterol sulfate 90 mcg/actuation aerosol powdr breath activated 1 inh inhalation ONCE buspirone 15 mg tablet 15 mg PO BID Primary Care Provider[facility] - Activity Restrictions/Additional Instructions: Follow-up with your primary care provider in 1 to 2 weeks. Tylenol or ibuprofen for chest pain. Return to ED for worsening or concerning symptoms. Disposition Disposition: Home, Self Care
[2024-02-20 17:13] LABS: Anion Gap 4 (5-15); BUN 14 mg/dL (7-18); BUN/Creat Ratio 18.6 RATIO (10-20); Calcium,Total 9.3 mg/dL (8.5-10.1); Chloride 104 mmol/L (98-107); Creatinine, Serum 0.75 mg/dL (0.55-1.02); EST Glomerular Filtration Rate 88 mL/min (>60); Est Glom Filt Rate - Afr Amer 107 mL/min (>60); Estimated Creatinine Clearance 112.35 ml/min; Glucose 92 mg/dL (74-106); Sodium Level 137 mmol/L (136-145); Troponin-I HS (w/2H Reflex) 6 pg/mL (3.0-54.0)
[2024-02-20 17:53] VITALS: BP 129/76; PULSE 64; RESP 14; TEMP 36.4; O2SAT 99
[2024-02-20 18:33] LABS: Reflex Troponin-HS? (from REC) Y
== END 2024-02-20 17:54 | disposition home or self-care (01) ==
LOC: ED 16:02
PROVIDERS: Visit Provider Emergency Medicine
DX: R07.89 Other chest pain (principal); M54.2 Cervicalgia; M25.511 Pain in right shoulder; F17.210 Nicotine dependence, cigarettes, uncomplicated; Z79.899 Other long term (current) drug therapy; Z86.19 Personal history of other infectious and parasitic diseases
CPT/HCPCS: 71045; 80048; 84484; 85025; 93005; A4216

== ENCOUNTER → 2024-12-24 | Outpatient (CLI) | payer MEDICAID, SELFPAY ==
[2024-12-24 17:35] LABS: ALB/GLOB Ratio 0.8 RATIO (0.9-2.4); AST(SGOT) 37 U/L (15-37); Alanine Aminotransfer ALT/SGPT 64 U/L (13-56); Albumin, Serum 3.5 g/dL (3.2-5.0); Alkaline Phosphatase 84 U/L (45-117); Anion Gap 6 (5-15); BUN 17 mg/dL (7-18); BUN/Creat Ratio 21.5 RATIO (10-20); Calcium,Total 9.1 mg/dL (8.5-10.1); Chloride 108 mmol/L (98-107); Creatinine, Serum 0.79 mg/dL (0.55-1.02); EST Glomerular Filtration Rate 83 mL/min (>60); Est Glom Filt Rate - Afr Amer 100 mL/min (>60); Globulin 4.4 g/dL (2.2-4.2); Glucose 108 mg/dL (74-106); Potassium 4.1 mmol/L (3.5-5.1); Protein, Total 7.9 g/dL (6.4-8.2); Sodium Level 141 mmol/L (136-145)
[2024-12-24 17:40] LABS: Hematocrit 39.2 % (37-47); Hemoglobin 12.9 g/dL (12.0-15.0); Mean Corp Hgb Conc 32.9 g/dL (32-36); Mean Corpuscular Volume 91.2 fL (81-99); Mean Platelet Vol. 9.5 fl (6.2-12.0); Platelet Count 329 K/mm3 (150-450); RBC Distribution Width CV 13.9 % (11.6-14.6); RBC Distribution Width SD 45.8 fl (35.1-43.9); White Blood Count 13.3 K/mm3 (4.4-11.0)
[2024-12-24 17:56] LABS: Erythrocyte Sedimentation Rate 17 mm/hr (0-30)
[2024-12-26 20:08] LABS: HCV Quant. RNA PCR 5490000 IU/mL (.)
== END | disposition home or self-care (01) ==
PROVIDERS: PCP Family Medicine; Visit Provider Family Medicine
DX: D72.829 Elevated white blood cell count, unspecified (principal); J44.9 Chronic obstructive pulmonary disease, unspecified
CPT/HCPCS: 36415; 80053; 85027; 85652; 87522